=== PATIENT | female | born 1965 | race Caucasian/White ===

== ENCOUNTER 2016-07-02 21:22 | Emergency (ER) | payer MEDICAID ==
--- NOTE | 2016-07-02 21:32 | EDPHY ---
H & P Stated Complaint: chest pain Time Seen by Provider: 07/02/16 21:30 HPI/ROS: CHIEF COMPLAINT: Chest pain. HISTORY OF PRESENT ILLNESS: This is a 50-year-old female with a history of anxiety presenting with intermittent left-sided chest pain since yesterday. This onset after she felt claustrophobic during a car ride. The pain is associated with left arm numbness, nausea, and generalized pains. The chest pain is worsened with deep breathing. She has been seen in the emergency department multiple times for these same symptoms, last time on 06/11. She has had full workups during these visits and been diagnosed with anxiety. She also notes starting her Lexapro today after not taking it for a period of time but denies any other new changes in her condition. She denies recent sickness. No fever, chills, shortness of breath, palpitations, vomiting, diarrhea, urinary complaints, headache, lightheadedness. REVIEW OF SYSTEMS: Aside from elements discussed in the HPI, a comprehensive 10-point review of systems was reviewed and is negative. PAST MEDICAL HISTORY: , anxiety, depression. SOCIAL HISTORY: Smoker, drinks alcohol. VITAL SIGNS: Reviewed by me GENERAL: Well-developed, well-nourished, resting comfortably in no respiratory distress. HEENT: Atraumatic. Eyes: No icterus, no injection. Mouth: moist mucous membranes. No erythema or lesions. Neck: supple with no adenopathy. LUNGS: Clear to auscultation bilaterally, no wheezes, rhonchi or rales. CARDIAC: Regular rate and rhythm, no rubs, murmurs or gallops. ABDOMEN: Soft, nontender, nondistended, bowel sounds normal. BACK: No CVA tenderness. EXTREMITIES: No trauma. No edema. Range of motion is normal throughout. NEURO: Alert and oriented, grossly nonfocal. SKIN: Warm and dry, no rash. PSYCHIATRIC: Normal mentation, no agitation. Portions of this note were transcribed by a certified medical coder. I personally performed a history, physical exam, medical decision making, and confirmed accuracy of information the transcribed note. Source: Patient Exam Limitations: No limitations - Personal History LMP (Females 10-55): 8-14 Days Ago Current Tetanus/Diphtheria Vaccine: Unsure - Medical/Surgical History Hx Asthma: Yes Hx Chronic Respiratory Disease: No Hx Diabetes: No Hx Cardiac Disease: No Hx Renal Disease: No Hx Cirrhosis: No Hx Alcoholism: No Hx HIV/AIDS: No Hx Splenectomy or Spleen Trauma: No Other PMH: PSH: . PMH: Anxiety - Social History Smoking Status: Light smoker Constitutional: Initial Vital Signs Temperature (C) 36.3 C 07/02/16 21:24 Heart Rate 87 07/02/16 21:24 Respiratory Rate 16 07/02/16 21:24 Blood Pressure 129/58 H 07/02/16 21:24 O2 Sat (%) 97 07/02/16 21:24 O2 Delivery Mode Room Air Allergies/Adverse Reactions: No Known Allergies Allergy (Unverified 08/01/15 16:42) Home Medications: Medication Instructions Recorded Aspirin 08/01/15 Escitalopram Oxalate 07/02/16 LORazepam [Ativan (*)] 1 mg PO BID PRN #6 tab 07/02/16 Medical Decision Making - Diagnostics Imaging: X-ray of the chest was obtained. I viewed the images myself on the PACS system. My interpretation of the images is: no acute process. The radiologist interpretation is pending at this time. I discussed the x-ray findings with the patient. ED Course/Re-evaluation: An IV was established and labs ordered. Chest x-ray and EKG ordered. 1mg IV Ativan administered for anxiety, 30mg IV Toradol for pain. Troponin neg. CXR without abnormalities. Patient better with toradol. Suspect anxiety. Advised to followup with PCP. Advised to consider taking regular daily meds for anxiety. Differential Diagnosis: After history and physical examination, the differential for chest pain was considered, including but not limited to, myocardial ischemia, acute coronary syndrome, pulmonary embolus, chest wall pain, anxiety, pleural inflammation and pulmonary infectious causes. - Data Points Laboratory Results: Laboratory Results 07/02/16 21:32 07/02/16 21:32 Medications Given: Discontinued Medications Ketorolac Tromethamine (Toradol) 30 mg IVP EDNOW ONE Stop: 07/02/16 22:26 Last Admin: 07/02/16 22:39 Dose: 30 mg Lorazepam (Ativan Injection) 1 mg IVP EDNOW ONE Stop: 07/02/16 22:27 Last Admin: 07/02/16 22:39 Dose: 1 mg Lorazepam (Ativan 1 Mg Prepack#4) 1 btl TIMMY MEDEIROS ONE Stop: 07/02/16 22:58 Last Admin: 07/02/16 23:48 Dose: 1 btl Departure - Departure Disposition: Home, Routine, Self-Care Clinical Impression: Chest pain, Anxiety Condition: Good Instructions: Chest Pain (ED), Anxiety (ED) Additional Instructions: Follow up with your primary care provider in the next 1-2 days if symptoms are not improving. Return to the emergency department for worsening pain, shortness of breath, or other serious worsening of condition. Please discuss your antidepressant with your primary care physician. You have also been giving Ativan to use as needed for severe anxiety. This may not be the best medication for you to use assisted, so please discuss your anti anxiety medication with your primary care physician. Referrals: Charlotte Hawkins PA [Physician [employer]oter] - As per Instructions Prescriptions: LORazepam [Ativan (*)] 1 mg PO BID PRN #6 tab PRN Reason: Anxiety Report Scribed for: Ailyn Don Report Scribed by: Stuart Fam Date of Report: 07/02/16 Time of Report: 21:31
--- NOTE | 2016-07-02 21:34 | CPEKG ---
Heart Rate: 79 RR Interval: 759 P-R Interval: 152 QRSD Interval: 78 QT Interval: 392 QTC Interval: 450 P [place]: 72 QRS [place]: 55 T Wave [place]: 55 EKG Severity - NORMAL ECG - EKG Impression: SINUS RHYTHM Electronically Signed By: Ailyn Don 03-Jul-2016 00:11:20
[2016-07-02] MEDS ORDERED: KETOROLAC 30 MG/1 ML SDV IVP ONE (22:25)
[2016-07-02] MEDS ORDERED: LORazepam 2 MG/ML INJ IVP ONE (22:26)
[2016-07-02 22:38] LABS: % IMMATURE GRANULYOCYTES 0.3 % (0.0-1.1); ABSOLUTE IMMATURE GRANULOCYTES 0.02 10^3/uL (0.00-0.10); ADD DIFF? NO; ADD MORPH? NO; ADD SCAN? NO; ATYPICAL LYMPHOCYTE FLAG 20 (0-99); FRAGMENT RBC FLAG 0 (0-99); HEMATOCRIT 32.1 % (38.0-47.0); HEMOGLOBIN 10.7 g/dL (12.6-16.3); LEFT SHIFT FLG 0 (0-99); LIPEMIA HEMOLYSIS FLAG 80 (0-99); MEAN CELL HEMOGLOBIN 26.8 pg (27.9-34.1); MEAN CELL HEMOGLOBIN CONCENTR. 33.3 g/dL (32.4-36.7); MEAN CELL VOLUME 80.3 fL (81.5-99.8); PLATELET CLUMPS FLAG 0 (0-99); PLATELET COUNT 297 10^3/uL (150-400); RED CELL DISTRIBUTION WIDTH 16.4 % (11.5-15.2)
[2016-07-02 22:44] LABS: ALANINE AMINOTRANSFERASE 24 IU/L (9-52); ALBUMIN 4.1 g/dL (3.5-5.0); ALKALINE PHOSPHATASE 65 IU/L (38-126); ANION GAP 16 mEq/L (8-16); ASPARTATE AMINOTRANSFERASE 24 IU/L (14-46); BILIRUBIN,TOTAL 0.8 mg/dL (0.1-1.4); BILIRUBIN-CONJUGATED 0.2 mg/dL (0.0-0.5); BILIRUBIN-UNCONJUGATED 0.6 mg/dL (0.0-1.1); CALCIUM 9.6 mg/dL (8.5-10.4); CARBON DIOXIDE 18 mEq/l (22-31); CHLORIDE 102 mEq/L (97-110); CREATININE 0.8 mg/dL (0.6-1.0); GLOMERULAR FILTRATION RATE > 60; GLUCOSE 126 mg/dL (70-100); POTASSIUM 3.9 mEq/L (3.5-5.2); SODIUM 136 mEq/L (134-144); TOTAL PROTEIN 7.9 g/dL (6.3-8.2)
--- NOTE | 2016-07-02 22:53 | DX ---
Chest, Two Views 2219 hours History: Chest pain. Comparison: May 2016 Findings: Cardiac silhouette is within normal range. No pneumonia, congestive heart failure, pleura l effusion, or pneumothorax. Impression: No acute pulmonary disease.
[2016-07-02 22:56] LABS: TROPONIN I < 0.012 ng/mL (0-0.034)
[2016-07-02] MEDS ORDERED: LORAZEPAM 1 MG PREPACK#4 BTL TAKEHOME ONE (22:57)
[2016-07-02 23:51] VITALS: BP 120/76; PULSE 65; RESP 20; TEMP 97.9; O2SAT 98
== END 2016-07-02 23:51 | disposition home or self-care (01) ==
DX: R07.9 Chest pain, unspecified (principal); F41.9 Anxiety disorder, unspecified; F17.200 Nicotine dependence, unspecified, uncomplicated; J45.909 Unspecified asthma, uncomplicated; Z79.82 Long term (current) use of aspirin
CPT/HCPCS: 96374; J1885

== ENCOUNTER 2017-02-01 18:04 | Emergency (ER) | payer MEDICAID ==
[2017-02-01 18:13] VITALS: BP 107/67; PULSE 65; RESP 22; TEMP 98.1; O2SAT 97
== END 2017-02-01 18:24 | disposition left against medical advice (07) ==
DX: Z53.21 Procedure and treatment not carried out due to patient leaving prior to being seen by health care provider (principal)

== ENCOUNTER 2017-08-11 17:37 | Emergency (ER) | payer MEDICAID ==
--- NOTE | 2017-08-11 18:17 | CPEKG ---
Heart Rate: 49 RR Interval: 1224 P-R Interval: 160 QRSD Interval: 76 QT Interval: 456 QTC Interval: 412 P [place]: 15 QRS [place]: 54 T Wave [place]: 48 EKG Severity - OTHERWISE NORMAL ECG - EKG Impression: SINUS BRADYCARDIA Electronically Signed By: Jose Lopez 11-Aug-2017 18:56:25
--- NOTE | 2017-08-11 18:38 | EDPHY ---
H & P Time Seen by Provider: 08/11/17 18:36 HPI/ROS: Chief complaint. Chest pain HPI. 52-year-old female here with chest pain that began today. However she has at most every day and she has been having it frequently for long time. It seems to be secondary to anxiety. She has been seen here in the emergency department multiple times for same and workups indicate anxiety and stress is etiology. Increased stress because she has a son with schizophrenia at home. She has sharp left anterior and lateral chest discomfort that last about 1 sec. She has hot neck and tingling hands. Her symptoms are not worse with breathing or exertion or position. No fever cough. Some epigastric pain. No unusual leg pain or swelling. ROS Constitutional. Anxiety Eyes. no problems with vision ENT. no sore throat, no nasal drainage Cardiovascular. Chest pain Respiratory. no shortness of breath, no cough Abdominal. no abdominal pain, no nausea/vomiting, no diarrhea . no problems urinating MS. no calf pain/swelling, no neck/back pain, no joint pain Skin. no rash Lymph. no swollen glands Neuro. no headache, no dizziness, no difficulty walking or with speech Past Medical/Surgical History: Anxiety, , panic attacks Half brother with an GA in his 50 Social History: , daily smoker, no alcohol Smoking Status: Current every day smoker Physical Exam: General Appearance: Alert well-developed female mild distress vital signs are stable. Obviously anxious Eyes: Pupils equal and round no pallor or injection. ENT, Mouth: Mucous membranes are moist. Respiratory: There are no retractions, lungs are clear to auscultation. Cardiovascular: Regular rate and rhythm. Gastrointestinal: Abdomen is soft and nontender, no masses, bowel sounds normal. Neurological: Awake and alert, sensory and motor exams grossly normal. Skin: Warm and dry, no rashes. Musculoskeletal: Neck is supple nontender. Extremities symmetrical, full range of motion. Psychiatric: Patient is oriented X 3, there is no agitation. Constitutional: Initial Vital Signs Temperature (C) 36.8 C 08/11/17 17:40 Heart Rate 65 08/11/17 17:40 Respiratory Rate 18 08/11/17 17:40 Blood Pressure 123/85 H 08/11/17 17:40 O2 Sat (%) 100 08/11/17 17:40 O2 Delivery Mode Room Air Allergies/Adverse Reactions: No Known Allergies Allergy (Verified 08/11/17 17:39) Home Medications: Medication Instructions Recorded traZODone [traZODONE 100MG (*)] 100 mg PO 08/11/17 Medical Decision Making - Diagnostics EKG Interpretation: EKG interpreted by me shows sinus bradycardia with normal interval and axis. QRS is normal there is no significant ST elevation or depression. No arrhythmia. The rate is 49 Imaging Results: Imaging Impressions Chest X-Ray 08/11/17 18:49 Impression: 1. No acute pulmonary disease. 2. Consider chest two views when the patient's medical condition permits. Procedures: IV normal saline, monitor. Ativan IV. GI cocktail. ED Course/Re-evaluation: Re-evaluation at 7:30 p.m.. Patient feeling better and well. No chest discomfort. The patient, her , and I discussed imaging and lab results. We discussed treatment plan including criteria for return importance of follow -up and further evaluation. They expressed understanding and agreement Differential Diagnosis: I think that this is largely anxiety. There may be some element of GERD as well. No evidence for pulmonary embolus, pneumonia, acute coronary syndrome, aortic dissection - Data Points Laboratory Results: Laboratory Results 08/11/17 12:30 08/11/17 12:30 08/11/17 08/11/17 08/11/17 12:30 12:30 12:30 WBC 5.74 10^3/uL 10^3/uL (3.80-9.50) RBC 4.02 10^6/uL L 10^6/uL (4.18-5.33) Hgb 11.7 g/dL L g/dL (12.6-16.3) Hct 35.4 % L % (38.0-47.0) MCV 88.1 fL fL (81.5-99.8) MCH 29.1 pg pg (27.9-34.1) MCHC 33.1 g/dL g/dL (32.4-36.7) RDW 16.2 % H % (11.5-15.2) Plt Count 294 10^3/uL 10^3/uL (150-400) MPV 10.7 fL fL (8.7-11.7) Neut % (Auto) 51.1 % % (39.3-74.2) Lymph % (Auto) 37.5 % % (15.0-45.0) [place] % (Auto) 6.4 % % (4.5-13.0) Eos % (Auto) 3.7 % % (0.6-7.6) Baso % (Auto) 1.0 % % (0.3-1.7) Nucleat RBC Rel Count 0.0 % % (0.0-0.2) Absolute Neuts (auto) 2.93 10^3/uL 10^3/uL (1.70-6.50) Absolute Lymphs (auto) 2.15 10^3/uL 10^3/uL (1.00-3.00) Absolute Monos (auto) 0.37 10^3/uL 10^3/uL (0.30-0.80) Absolute Eos (auto) 0.21 10^3/uL 10^3/uL (0.03-0.40) Absolute Basos (auto) 0.06 10^3/uL 10^3/uL (0.02-0.10) Absolute Nucleated RBC 0.00 10^3/uL 10^3/uL (0-0.01) Immature Gran % 0.3 % % (0.0-1.1) Immature Gran # 0.02 10^3/uL 10^3/uL (0.00-0.10) D-Dimer < 0.27 ug/mLFEU ug/mLFEU (0.00-0.50) Sodium 139 mEq/L mEq/L (135-145) Potassium 4.3 mEq/L mEq/L (3.5-5.2) Chloride 106 mEq/L mEq/L (97-110) Carbon Dioxide 21 mEq/l L mEq/l (22-31) Anion Gap 12 mEq/L mEq/L (8-16) BUN 16 mg/dL mg/dL (7-23) Creatinine 0.8 mg/dL mg/dL (0.6-1.0) Estimated GFR > 60 Glucose 89 mg/dL mg/dL (70-100) Calcium 9.6 mg/dL mg/dL (8.5-10.4) Troponin I < 0.012 ng/mL ng/mL (0.000-0.034) Lipase 163 IU/L IU/L (23-300) Medications Given: Discontinued Medications Al Hydroxide/Mg Hydroxide (Maalox Susp) 30 ml PO ONCE ONE Stop: 08/11/17 18:50 Last Admin: 08/11/17 19:26 Dose: 30 ml Lidocaine (Lidocaine 2% Viscous) 15 ml PO ONCE ONE Stop: 08/11/17 18:50 Last Admin: 08/11/17 19:26 Dose: 15 ml Lorazepam (Ativan Injection) 1 mg IVP EDNOW ONE Stop: 08/11/17 18:51 Last Admin: 08/11/17 19:29 Dose: 1 mg Departure - Departure Disposition: Home, Routine, Self-Care Clinical Impression: Anxiety Condition: Good Instructions: Anxiety (ED) Additional Instructions: Consider using Prilosec [id number] to help with reflux symptoms. Continue regular medications. Return for worsening symptoms. Recheck in 1-2 days for continuing Referrals: NONE *PRIMARY CARE P,. [Primary Care Provider] - As per Instructions Katiana Fam [Non Staff and Non MD] - 1 day, if not improved
[2017-08-11] MEDS ORDERED: LIDOCAINE 2% VISCOUS 15 ML UDCUP PO ONE (18:49)
[2017-08-11] MEDS ORDERED: MAG HYDROX/AL HYDROX/SIMETH 30 ML UDCUP PO ONE (18:49)
[2017-08-11] MEDS ORDERED: LORazepam 2 MG/ML INJ IVP ONE (18:50)
[2017-08-11 18:55] LABS: PLATELET COUNT 294 10^3/uL (150-400)
[2017-08-11 20:21] VITALS: BP 125/67; PULSE 62; RESP 17; TEMP 98.4; O2SAT 98
== END 2017-08-11 20:20 | disposition home or self-care (01) ==
DX: F41.9 Anxiety disorder, unspecified (principal); F17.200 Nicotine dependence, unspecified, uncomplicated
CPT/HCPCS: 96374; J2060